=== PATIENT | female | born 2000 | race Caucasian/White ===

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

== ENCOUNTER → 2022-01-10 17:27 | Observation (INO) ==
[2022-01-10 16:18] LABS: Bilirubin,Urine Negative (Negative); Blood,Urine Moderate (Negative); Clarity,Urine Turbid (Clear); Color,Urine Yellow (Yellow); Glucose,Urine (UA) Normal (Normal); Ketones,Urine Trace mg/dL (Negative); Leukocyte Esterase,Urine Large (Negative); Nitrite,Urine Negative (Negative); PH,Urine 5.5 pH Units (5.0-8.0); Protein,Urine 100 mg/dL (Neg-Trace); Specific Gravity,Urine > 1.030 (1.010-1.025); Urobilinogen,Urine Normal (Normal)
[2022-01-10 16:26] LABS: Amorphous Sediment,Urine Few per hpf (None-Few); Mucus,Urine Few per lpf (None-Few); RBC,Urine 0-3 per hpf (0-3); Squamous Epithelial Cell,Urine Many per hpf (None-Few)
[2022-01-10 17:13] LABS: Trichomonas DNA Not Detected (Not Detect)
[2022-01-10 17:14] LABS: Candida DNA Not Detected (Not Detect); Gardnerella DNA Not Detected (Not Detect)
== END | disposition home or self-care (01) ==
LOC: 1NENULAB
PROVIDERS: ADMIT Advanced Practice Midwife; ATTEND Advanced Practice Midwife

== ENCOUNTER → 2022-03-25 22:09 | Observation (INO) ==
[2022-03-25 21:32] LABS: Bilirubin,Urine Negative (Negative); Blood,Urine Small (Negative); Calcium Oxalate Crystals,Urine Present per hpf; Clarity,Urine Turbid (Clear); Color,Urine Yellow (Yellow); Glucose,Urine (UA) >=1000 mg/dL (Normal); Ketones,Urine Trace mg/dL (Negative); Leukocyte Esterase,Urine Large (Negative); Mucus,Urine Few per lpf (None-Few); Nitrite,Urine Negative (Negative); Protein,Urine 30 mg/dL (Neg-Trace); RBC,Urine 30-50 per hpf (0-3); Specific Gravity,Urine 1.025 (1.010-1.025); Squamous Epithelial Cell,Urine Moderate per hpf (None-Few); WBC,Urine 15-30 per hpf (0-3)
[~2022-03-25 22:09] MED LIST: Acetaminophen 325 MG TABLET PO ONE; Nitrofurantoin (BID) 100 MG CAPSULE PO ONE
== END | disposition home or self-care (01) ==
LOC: 1NENULAB
PROVIDERS: ADMIT Student in an Organized Health Care Education/Training Program; ATTEND Student in an Organized Health Care Education/Training Program

== ENCOUNTER → 2022-04-08 17:24 | Observation (INO) ==
[2022-04-08 15:44] LABS: Basophils % 0.2 %; Eosinophils % 0.3 %; Hematocrit 35.8 % (35.3-44.9); Hemoglobin 11.6 g/dL (11.5-15.4); Immature Granulocytes % 0.3 % (0-4); Lymphocytes # 2.6 K/mcL (0.6-4.6); Lymphocytes % 22.5 %; Mean Corpuscular HGB Conc 32.4 g/dL (31.6-35.5); Mean Corpuscular Hemoglobin 28.2 pg (28.0-33.3); Mean Corpuscular Volume 86.9 fL (83.0-100.0); Mean Platelet Volume 11.4 fL (9.4-12.4); Monocytes # 0.7 K/mcL (0.0-1.3); Monocytes % 6.3 %; Neutrophils # 8.2 K/mcL (1.6-8.9); Platelet Count 263 K/mcL (140-400); Red Blood Count 4.12 M/mcL (3.82-4.97); Red Cell Distribution Width 14.4 % (11.5-14.5); Segmented Neutrophils % 70.4 %; White Blood Count 11.7 K/mcL (4.3-11.1)
[2022-04-08 15:52] LABS: Protein/Creatinine Ratio,Urine 0.36 mg/mg (0.00-0.20)
[2022-04-08 16:03] LABS: Alanine Aminotransferase 14 Units/L (7-52); Aspartate Amino Transferase 18 Units/L (13-39); BUN/Creatinine Ratio 19 (6-26); Blood Urea Nitrogen 8 mg/dL (6-20); Lactate Dehydrogenase 137 Units/L (140-271); Uric Acid 4.3 mg/dL (2.3-7.6); eGFR For African Americans > 60; eGFR For Non-African Americans > 60
== END | disposition home or self-care (01) ==
LOC: 1NENULAB
PROVIDERS: ADMIT Student in an Organized Health Care Education/Training Program; ATTEND Student in an Organized Health Care Education/Training Program

== ENCOUNTER → 2022-04-10 23:06 | Observation (INO) ==
[2022-04-10 20:50] LABS: Basophils % 0.2 %; Eosinophils # 0.1 K/mcL (0.0-0.6); Eosinophils % 0.5 %; Hematocrit 35.9 % (35.3-44.9); Hemoglobin 11.7 g/dL (11.5-15.4); Immature Granulocytes % 0.4 % (0-4); Lymphocytes # 2.8 K/mcL (0.6-4.6); Mean Corpuscular HGB Conc 32.6 g/dL (31.6-35.5); Mean Corpuscular Hemoglobin 28.5 pg (28.0-33.3); Mean Corpuscular Volume 87.3 fL (83.0-100.0); Mean Platelet Volume 11.5 fL (9.4-12.4); Monocytes # 0.8 K/mcL (0.0-1.3); Monocytes % 5.9 %; Neutrophils # 9.1 K/mcL (1.6-8.9); Platelet Count 291 K/mcL (140-400); Red Blood Count 4.11 M/mcL (3.82-4.97); Red Cell Distribution Width 14.4 % (11.5-14.5); White Blood Count 12.8 K/mcL (4.3-11.1)
[2022-04-10 20:59] LABS: Protein/Creatinine Ratio,Urine 0.55 mg/mg (0.00-0.20)
[2022-04-10 21:09] LABS: Alanine Aminotransferase 20 Units/L (7-52); Aspartate Amino Transferase 33 Units/L (13-39); BUN/Creatinine Ratio 14 (6-26); Blood Urea Nitrogen 7 mg/dL (6-20); Lactate Dehydrogenase 163 Units/L (140-271); Uric Acid 4.6 mg/dL (2.3-7.6); eGFR For African Americans > 60; eGFR For Non-African Americans > 60
[2022-04-10 22:29] LABS: Amorphous Sediment,Urine Few per hpf (None-Few); Bacteria,Urine Few per hpf (None-Few); Bilirubin,Urine Negative (Negative); Blood,Urine Negative (Negative); Calcium Oxalate Crystals,Urine Present per hpf; Clarity,Urine Turbid (Clear); Color,Urine Yellow (Yellow); Glucose,Urine (UA) 300 mg/dL (Normal); Hyaline Casts,Urine Few per lpf (None Seen); Ketones,Urine Trace mg/dL (Negative); Leukocyte Esterase,Urine Moderate (Negative); Mucus,Urine Many per lpf (None-Few); Nitrite,Urine Negative (Negative); Protein,Urine 100 mg/dL (Neg-Trace); Specific Gravity,Urine > 1.030 (1.010-1.025); Squamous Epithelial Cell,Urine Moderate per hpf (None-Few)
== END | disposition home or self-care (01) ==
LOC: 1NENULAB
PROVIDERS: ADMIT Obstetrics & Gynecology; ATTEND Obstetrics & Gynecology

== ENCOUNTER 2022-04-19 12:56 | Inpatient (IN) ==
[2022-04-19] MEDS ORDERED: Naloxone 0.4 MG/ML INJ IVP PRN (13:25)
[2022-04-19] MEDS ORDERED: Azithromycin 500 MG in 0.9 % Sodium Chloride 250 ML IVPB PRN (13:25)
[2022-04-19] MEDS ORDERED: Ondansetron 4 MG/2 ML VIAL IVP PRN (13:25)
[2022-04-19] MEDS ORDERED: Famotidine 20 MG/2 ML VIAL IVP PRN (13:25)
[2022-04-19] MEDS ORDERED: Metoclopramide 10 MG/2 ML VIAL IVP PRN (13:25)
[2022-04-19] MEDS ORDERED: Lidocaine 1% 20 ML MDV INFILT PRN (13:25)
[2022-04-19] MEDS ORDERED: Ringers Solution, Lactated 1,000 ML IVC SCH (13:30)
[2022-04-19 15:47] LABS: Basophils % 0.2 %; Eosinophils # 0.1 K/mcL (0.0-0.6); Eosinophils % 0.5 %; Hematocrit 37.4 % (35.3-44.9); Immature Granulocytes % 0.4 % (0-4); Lymphocytes # 2.3 K/mcL (0.6-4.6); Lymphocytes % 20.9 %; Mean Corpuscular HGB Conc 32.1 g/dL (31.6-35.5); Mean Corpuscular Hemoglobin 27.6 pg (28.0-33.3); Mean Corpuscular Volume 86.2 fL (83.0-100.0); Mean Platelet Volume 11.8 fL (9.4-12.4); Monocytes # 0.6 K/mcL (0.0-1.3); Monocytes % 5.7 %; Neutrophils # 7.8 K/mcL (1.6-8.9); Platelet Count 286 K/mcL (140-400); Red Blood Count 4.34 M/mcL (3.82-4.97); Red Cell Distribution Width 14.5 % (11.5-14.5); Segmented Neutrophils % 72.3 %; White Blood Count 10.7 K/mcL (4.3-11.1)
[2022-04-19 15:49] LABS: Alanine Aminotransferase 16 Units/L (7-52); Aspartate Amino Transferase 22 Units/L (13-39); BUN/Creatinine Ratio 15 (6-26); Blood Urea Nitrogen 8 mg/dL (6-20); Lactate Dehydrogenase 175 Units/L (140-271); Uric Acid 5.5 mg/dL (2.3-7.6)
[2022-04-19] MEDS ORDERED: miSOPROStoL 25 MCG TABLET PO SCH (16:00)
[2022-04-19 16:21] LABS: Amphetamine Screen,Urine Negative ng/mL (Cutoff=1000); Barbiturate Screen,Urine Negative ng/mL (Cutoff=200); Benzodiazepines Screen,Urine Negative ng/mL (Cutoff=200); Cannabinoid Screen,Urine Negative ng/mL (Cutoff = 50); Cocaine Screen,Urine Negative ng/mL (Cutoff= 300); Opiate Screen,Urine Negative ng/mL (Cutoff=300); Phencyclidine Screen,Urine Negative ng/mL (Cutoff=25); Protein/Creatinine Ratio,Urine 0.38 mg/mg (0.00-0.20)
[2022-04-19] MEDS: *HR* Nalbuphine 10 MG/ML AMPUL IV PRN ×2 (18:34→20:34)
[2022-04-19] MEDS ORDERED: Epidural Premix (fent/bupiv) 110 ML EP ONE (20:33)
[2022-04-19] MEDS ORDERED: *HR* Labetalol 20 MG/4 ML SYRINGE IVP ONE ×4 (22:00→22:32)
[2022-04-19] MEDS ORDERED: EPHEDrine 50 MG/ML VIAL IVP PRN (22:42)
[2022-04-19] MEDS ORDERED: Calcium Gluconate 1,000 MG/10 ML VIAL IVP PRN (22:43)
[2022-04-19] MEDS ORDERED: Epidural Premix (fent/bupiv) 110 ML EP SCH (22:45)
[2022-04-19] MEDS ORDERED: Magnesium Sulf 20 gm/SW 500mL 6 GM/150 ML BAG IV ONE (22:48)
[2022-04-19] MEDS ORDERED: Oxytocin 30 UNIT/503 ML BAG IVC ONE (23:18)
[2022-04-19] MEDS: Oxytocin 30 UNIT/503 ML BAG IVC SCH (23:22)
[2022-04-19] MEDS: Magnesium Sulf 20 gm/SW 500mL 20 GM/500 ML IV.SOLN IVC SCH (23:45)
[2022-04-20] MEDS ORDERED: Lidocaine/EPI 1:200k 2% PF 20 ML VIAL ONE ×2 (05:58→12:25)
[2022-04-20] MEDS ORDERED: Sodium Bicarbonate 50 MEQ/50 ML VIAL ONE (05:58)
[2022-04-20] MEDS: Magnesium Sulf 20 gm/SW 500mL 20 GM/500 ML IV.SOLN IVC SCH (06:40)
[2022-04-20] MEDS ORDERED: *HR* Nalbuphine 10 MG/ML AMPUL IV PRN (10:50)
[2022-04-20] MEDS ORDERED: *HR* Nalbuphine 10 MG/ML AMPUL ONE (10:51)
[2022-04-20] MEDS: Oxytocin 30 UNIT/503 ML BAG IVC SCH (11:07)
[2022-04-20] MEDS ORDERED: *HR* FentaNYL (PF) 100 MCG/2 ML VIAL ONE (12:25)
[2022-04-20] MEDS ORDERED: Ringers Solution, Lactated 1,000 ML ONE (12:47)
[2022-04-20] MEDS ORDERED: *HR* Midazolam HCl 2 MG/2 ML VIAL ONE (12:48)
[2022-04-20 12:57] LABS: Basophils % 0.1 %; Hematocrit 35.9 % (35.3-44.9); Hemoglobin 11.7 g/dL (11.5-15.4); Immature Granulocytes % 0.4 % (0-4); Lymphocytes # 3.1 K/mcL (0.6-4.6); Lymphocytes % 15.6 %; Mean Corpuscular HGB Conc 32.6 g/dL (31.6-35.5); Mean Corpuscular Hemoglobin 28.2 pg (28.0-33.3); Mean Corpuscular Volume 86.5 fL (83.0-100.0); Mean Platelet Volume 11.3 fL (9.4-12.4); Monocytes % 4.8 %; Neutrophils # 15.8 K/mcL (1.6-8.9); Platelet Count 334 K/mcL (140-400); Red Blood Count 4.15 M/mcL (3.82-4.97); Red Cell Distribution Width 14.7 % (11.5-14.5); Segmented Neutrophils % 79.1 %
[2022-04-20] MEDS ORDERED: Ringers Solution, Lactated 500 ML IVC ONE (13:27)
[2022-04-20] MEDS ORDERED: Methylergonovine 0.2 MG/ML AMPUL IM ONE (16:12)
[2022-04-20] MEDS ORDERED: miSOPROStoL 100 MCG TABLET RC ONE (16:12)
[2022-04-20] MEDS ORDERED: Ondansetron ODT 4 MG TAB.RAPDIS SL PRN (17:27)
[2022-04-20] MEDS ORDERED: Rho Immune Globulin 1,500 UNIT SYRINGE IM PRN (17:27)
[2022-04-20] MEDS ORDERED: Lanolin 7 G OINT...G. TP PRN (17:27)
[2022-04-20] MEDS ORDERED: Benzocaine/Menthol 56 GM AEROSOL SPRAY TP PRN (17:27)
[2022-04-20] MEDS ORDERED: ceFAZolin 2,000 MG in 0.9 % Sodium Chloride 100 ML IVPB SCH (17:27)
[2022-04-20] MEDS ORDERED: Measles/Mumps/Rubella Vacc 0.5 ML VIAL SQ PRN (17:27)
[2022-04-20] MEDS ORDERED: Oxytocin 30 UNIT/503 ML BAG IVC SCH (17:27)
[2022-04-20] MEDS: Prenatal Vit/FA 1 EACH TABLET PO SCH (17:36)
[2022-04-20] MEDS: Ibuprofen 600 MG TABLET PO SCH (17:36)
[2022-04-20] MEDS: Acetaminophen 325 MG TABLET PO SCH (17:36)
[2022-04-21] MEDS ORDERED: miSOPROStoL 100 MCG TABLET PO PRN (01:46)
[2022-04-21] MEDS: Acetaminophen 325 MG TABLET PO SCH ×4 (02:46→21:35)
[2022-04-21] MEDS: Ibuprofen 600 MG TABLET PO SCH ×4 (02:46→21:34)
[2022-04-21 05:19] LABS: Basophils % 0.2 %; Eosinophils % 0.2 %; Hematocrit 27.4 % (35.3-44.9); Immature Granulocytes % 0.2 % (0-4); Lymphocytes % 18.8 %; Mean Corpuscular HGB Conc 32.1 g/dL (31.6-35.5); Mean Corpuscular Volume 87.3 fL (83.0-100.0); Monocytes # 0.8 K/mcL (0.0-1.3); Monocytes % 7.6 %; Neutrophils # 7.6 K/mcL (1.6-8.9); Platelet Count 257 K/mcL (140-400); Red Blood Count 3.14 M/mcL (3.82-4.97); Red Cell Distribution Width 15.2 % (11.5-14.5); White Blood Count 10.4 K/mcL (4.3-11.1)
[2022-04-21 05:21] LABS: Hemoglobin 8.8 g/dL (11.5-15.4)
[2022-04-21] MEDS: ceFAZolin 2,000 MG in 0.9 % Sodium Chloride 100 ML IVPB SCH ×2 (05:29→15:22)
[2022-04-21] MEDS: Prenatal Vit/FA 1 EACH TABLET PO SCH (07:43)
[2022-04-22] MEDS: ceFAZolin 2,000 MG in 0.9 % Sodium Chloride 100 ML IVPB SCH ×2 (00:13→07:39)
[2022-04-22 05:36] LABS: Immature Granulocytes % 0.5 % (0-4); Immature Platelets 7.9 % (1.1-6.1)
[2022-04-22 05:49] LABS: Basophils % 0.2 %; Eosinophils # 0.2 K/mcL (0.0-0.6); Eosinophils % 2.1 %; Hematocrit 26.6 % (35.3-44.9); Hemoglobin 8.1 g/dL (11.5-15.4); Lymphocytes # 3.1 K/mcL (0.6-4.6); Lymphocytes % 37.3 %; Mean Corpuscular HGB Conc 30.5 g/dL (31.6-35.5); Mean Corpuscular Hemoglobin 27.6 pg (28.0-33.3); Mean Corpuscular Volume 90.8 fL (83.0-100.0); Mean Platelet Volume 11.5 fL (9.4-12.4); Monocytes # 0.5 K/mcL (0.0-1.3); Monocytes % 6.1 %; Neutrophils # 4.4 K/mcL (1.6-8.9); Platelet Count 254 K/mcL (140-400); Red Blood Count 2.93 M/mcL (3.82-4.97); Red Cell Distribution Width 15.1 % (11.5-14.5); Segmented Neutrophils % 53.8 %; White Blood Count 8.2 K/mcL (4.3-11.1)
[2022-04-22] MEDS: Acetaminophen 325 MG TABLET PO SCH ×2 (06:10→07:39)
[2022-04-22] MEDS: Ibuprofen 600 MG TABLET PO SCH ×2 (06:11→07:39)
[2022-04-22 06:59] VITALS: TEMP 98.3
[2022-04-22] MEDS: Prenatal Vit/FA 1 EACH TABLET PO SCH (07:34)
[2022-04-22 07:35] LABS: Platelet Estimate Normal (Normal)
[2022-04-22 11:02] VITALS: BP 127/65; PULSE 75; O2SAT 99
== END 2022-04-22 13:15 | disposition home or self-care (01) | DRG 541 ==
LOC: 1NENULAB 12:56 → 1NENUOBS 04-20 17:14
PROVIDERS: ADMIT Student in an Organized Health Care Education/Training Program; ATTEND Student in an Organized Health Care Education/Training Program